=== PATIENT | female | born 1990 | race Caucasian/White ===

== ENCOUNTER 2018-02-05 19:43 | Emergency (ER) | payer BC ==
[2018-02-05] MEDS: ALBUTEROL 0.5% (NEB) 2.5 MG/0.5 ML AMP INH (20:05)
[2018-02-05] MEDS: METHYLPREDNISOLONE 125 MG INJ IV (20:53)
== END 2018-02-05 21:15 | disposition home or self-care (01) ==
LOC: E/R 19:43
DX: J45.41 Moderate persistent asthma with (acute) exacerbation (principal); R40.2142 Coma scale, eyes open, spontaneous, at arrival to emergency department; R40.2362 Coma scale, best motor response, obeys commands, at arrival to emergency department; R40.2252 Coma scale, best verbal response, oriented, at arrival to emergency department
CPT/HCPCS: 94644; 96374; 99284-25

== ENCOUNTER 2018-07-28 00:28 | Emergency (ER) | payer BC ==
[2018-07-28] MEDS: ALBUTEROL 0.083% (NEB) 2.5 MG/3 ML AMP NEB (00:47)
[2018-07-28] MEDS: IPRATROPIUM (NEB) 0.5 MG/2.5 ML AMP NEB (00:47)
[2018-07-28] MEDS: DEXAMETHASONE 10 MG/ML 1 ML INJ IM (01:12)
== END 2018-07-28 02:03 | disposition home or self-care (01) ==
LOC: E/R 00:28
DX: R05 Cough (principal)
CPT/HCPCS: 94664; 96372; 99284-25

== ENCOUNTER 2018-10-30 02:03 | Emergency (ER) | payer BC ==
[2018-10-30] MEDS: ONDANSETRON (ODT) 4 MG TAB ODT (02:17)
[2018-10-30 02:18] LABS: ADD MAN DIFF? NO
[2018-10-30 02:19] LABS: BASOPHILS % 0.3 % (0.0-2.0); EOSINOPHILS % 0.1 % (0.0-7.0); HEMATOCRIT 43.2 % (37.0-47.0); HEMOGLOBIN 14.5 g/dl (12.0-16.0); LYMPHOCYTES # 2.5 10^3/ul (0.8-2.9); LYMPHOCYTES % 28.6 % (15.0-51.0); MEAN CORPUSCULAR HEMOGLOBIN 30.4 pg (29.0-33.0); MEAN CORPUSCULAR HGB CONC 33.6 g/dl (32.0-37.0); MEAN CORPUSCULAR VOLUME 90.6 fl (82.0-101.0); MEAN PLATELET VOLUME 10.5 fl (7.4-10.4); MONOCYTE # 0.4 10^3/ul (0.3-0.9); MONOCYTES % 4.7 % (0.0-11.0); NEUTROPHIL # 5.7 10^3/ul (1.6-7.5); PLATELET COUNT 297 10^3/UL (140-415); RED BLOOD COUNT 4.77 10^6/ul (4.20-5.40); RED CELL DISTRIBUTION WIDTH 12.4 % (11.5-14.5)
[2018-10-30 02:19] LABS: WHITE BLOOD COUNT 8.6 10^3/ul (4.8-10.8)
[2018-10-30 02:39] LABS: ALANINE AMINOTRANSFERASE 30 IU/L (13-69); ALBUMIN 4.7 g/dl (3.3-4.9); ALKALINE PHOSPHATASE 79 IU/L (42-121); ANION GAP 15 (5-13); ASPARTATE AMINO TRANSFERASE 25 IU/L (15-46); BILIRUBIN,INDIRECT 0.4 mg/dl (0-1.1); BILIRUBIN,TOTAL 0.4 mg/dl (0.2-1.3); BLOOD UREA NITROGEN 12 mg/dl (7-20); CALCIUM 9.3 mg/dl (8.4-10.2); CARBON DIOXIDE 23 mmol/L (21-31); CHLORIDE 105 mmol/L (97-110); CREATININE 0.72 mg/dl (0.44-1.00); Estimated GFR > 60 mL/min (>60); GLUCOSE 137 mg/dl (70-220); POTASSIUM 3.7 mmol/L (3.5-5.1); SODIUM 143 mmol/L (135-144); TOTAL PROTEIN 8.3 g/dl (6.1-8.1)
[2018-10-30 02:57] LABS: D-DIMER < 220.00 ng/ml (<460)
[2018-10-30 03:09] LABS: THYROID STIMULATING HORMONE 0.732 MIU/L (0.465-4.680)
[2018-10-30 03:44] LABS: TROPONIN-I < 0.012 ng/ml (0.000-0.120)
== END 2018-10-30 04:16 | disposition home or self-care (01) ==
LOC: E/R 02:03
DX: R00.2 Palpitations (principal); R11.0 Nausea
CPT/HCPCS: 80053; 84443; 84484; 84702; 85025; 85378; 93005; 99284-25

== ENCOUNTER 2018-11-30 21:34 | Emergency (ER) | payer BC ==
[2018-11-30] MEDS: DIPHENHYDRAMINE 50 MG INJ IV (21:59)
[2018-11-30] MEDS: PROCHLORPERAZINE 10 MG INJ IV (21:59)
[2018-11-30] MEDS: KETOROLAC 30 MG INJ IV (22:00)
[2018-11-30] MEDS: SOD CHLORIDE 0.9% 1,000 ML IV (22:00)
== END 2018-11-30 23:41 | disposition home or self-care (01) ==
LOC: E/R 21:34
DX: G43.909 Migraine, unspecified, not intractable, without status migrainosus (principal)
CPT/HCPCS: 36415; 81025; 96374; 96375; 99284-25

== ENCOUNTER → 2018-12-17 | Emergency (ER) | payer BC ==
[2018-12-17 20:02] LABS: URINE BLOOD (Dip) POC 2+ (NEGATIVE); URINE GLUCOSE (Dip) POC Negative (NEGATIVE); URINE KETONES (Dip) POC Trace (NEGATIVE); URINE LEUKOCYTE EST (Dip) POC 1+ (NEGATIVE); URINE NITRITE (Dip) POC Negative (NEGATIVE); URINE TOTAL PROTEIN POC Negative (NEGATIVE)
[2018-12-17] MEDS: CIPROFLOXACIN 500 MG TAB PO (20:09)
== END | disposition home or self-care (01) ==
LOC: E/R 19:49
DX: N39.0 Urinary tract infection, site not specified (principal)
CPT/HCPCS: 81003; 81025; 99283